=== PATIENT | male | born 1935 | race Caucasian/White ===

== ENCOUNTER 2018-09-02 10:53 | Emergency (ER) | payer OTHER ==
[2018-09-02 10:54] VITALS: PULSE 129
--- NOTE | 2018-09-02 11:49 | ED PDOC ---
HPI: Psych/Substance Abuse Time Seen by Provider: 09/02/18 11:21 Chief Complaint (Nursing): Psychiatric Evaluation Chief Complaint (Provider): Dementia ED Caveat: Dementia, Uncooperative, Language Barrier History/Exam Limitations: language barrier Onset/Duration Of Symptoms: Persistent Current Symptoms Are (Timing): Constant Modifying Factor(s): None (Pt presents to the ED ) Severity: Mild Associated Symptoms: Agitation Involuntary Hold By: None (Pt presents to the ED from [facility] of a demented individual who had been becoming agitated with staff and spitting and kicking at them; no complaints of any acture medical conditions) Past Medical History Reviewed: Historical Data, Nursing Documentation, Vital Signs Vital Signs: Last Vital Signs Temp 97.6 F 09/02/18 10:57 Pulse 81 09/02/18 10:57 Resp 17 09/02/18 10:57 BP 131/95 H 09/02/18 10:57 Pulse Ox 96 09/02/18 10:57 - Medical History PMH: Dementia Denies: Deep Vein Thrombosis - Surgical History Surgical History: Cholecystectomy Denies: Pacemaker - Family History Family History: States: Unknown Family Hx - Immunization History Hx Tetanus Toxoid Vaccination: No Hx Influenza Vaccination: No Hx Pneumococcal Vaccination: No - Home Medications Home Medications: Ambulatory Orders Medication Instructions Recorded Finasteride [Proscar] 5 mg PO DAILY 07/11/18 Aspirin [Aspirin Chewable] 81 mg PO DAILY chew 07/21/18 Donepezil [Aricept] 5 mg PO HS tab 07/21/18 Rosuvastatin Calcium [Crestor] 10 mg PO HS tab 07/21/18 Nicotine 21 mg/24 hr [Nicoderm Cq] 1 patch TD DAILY patch 07/25/18 Albuterol/Ipratropium [Duoneb 3 3 ml INH RQ6 PRN neb 08/01/18 mg/0.5 mg (3 ml) UD] Apixaban [Eliquis] 2.5 mg PO BID tab 08/01/18 Verapamil ER [Calan SR Tab] [address] 08/01/18 Acetaminophen [Tylenol 325mg tab] 650 mg PO Q4 PRN 09/02/18 Acetaminophen [Tylenol 325mg tab] 650 mg PO Q4 PRN 09/02/18 Brimonidine 0.2% [Alphagan 0.2% 1 drop EACHEYE DAILY 09/02/18 Opht] Guaifenesin/Dextromethorphan 10 ml PO Q8 09/02/18 [Diabetic Tussin] LORazepam [Ativan] 1 mg PO Q12 PRN 09/02/18 Latanoprost 0.005% Opht [Xalatan 1 drop EACHEYE HS 09/02/18 Opht] Linezolid [Zyvox] 600 mg PO Q12 09/02/18 Saccharomyces Boulardi [Florastor] 250 mg PO BID 09/02/18 Vitamin B Complex/Vitamin C 1 tab PO DAILY 09/02/18 [Berocca] - Allergies Allergies/Adverse Reactions: Allergies Allergy/AdvReac Type Severity Reaction Status Date / Time No Known Allergies Allergy Verified 07/11/18 18:23 Review of Systems ROS Statement: Except As Marked, All Systems Reviewed And Found Negative Neurological: Positive for: Altered Mental Status Physical Exam - Reviewed Nursing Documentation Reviewed: Yes Vital Signs Reviewed: Yes - Physical Exam Appears: Positive for: Well, Non-toxic, No Acute Distress. Negative for: Uncomfortable Head Exam: Positive for: ATRAUMATIC, NORMAL INSPECTION Skin: Positive for: Normal Color, Warm, Dry. Negative for: Diaphoresis, Pallor, Rash Eye Exam: Positive for: Normal appearance, EOMI, PERRL. Negative for: Nystagmus, Periorbital swelling, Periorbital tenderness ENT: Positive for: Normal ENT Inspection Neck: Positive for: Normal, Painless ROM, Supple. Negative for: Decreased ROM Cardiovascular/Chest: Positive for: Regular Rate, Rhythm Respiratory: Positive for: Normal Breath Sounds Pulses-Carotid (L): 2+ Pulses-Carotid (R): 2+ Pulses-Radial (L): 2+ Pulses-Radial (R): 2+ Neurologic/Psych: Positive for: Alert, Oriented - Laboratory Results Result Diagrams: 09/02/18 12:40 09/02/18 12:40 - ECG O2 Sat by Pulse Oximetry: 96 Medical Decision Making Medical Decision Making: I: Dementia P: Crisis Evaluation and medical clearance The patient is medically cleared to return to the nursing facility The patient is psychologically cleared to return to the nursing facility Disposition - Clinical Impression Clinical Impression: Dementia - Patient ED Disposition Is Patient to be Admitted: No Doctor Will See Patient In The: Office Counseled Patient/Family Regarding: Diagnosis, Need For Followup - Disposition Referrals: Abran King MD [Staff Provider] - Disposition: Other Institution ([facility]) Disposition Time: 15:27 Condition: STABLE Instructions: Dementia (Including Alzheimer Disease), Dementia (DC) Forms: [employer] ([place])
[2018-09-02 12:48] LABS: BASO % 0.2 % (0.0-2.0); EOS # 0.1 K/uL (0.0-0.7); EOS % 1.1 % (0.0-4.0); HEMOGLOBIN 10.6 g/dL (12.0-18.0); LYMPH % 21.7 % (20.0-40.0); MEAN CELL VOLUME 82.9 fl (80.0-94.0); MEAN CORPUSCULAR HEMOGLOBIN 26.4 pg (27.0-31.0); MEAN CORPUSCULAR HGB CONC 31.8 g/dL (33.0-37.0); MEAN PLATELET VOLUME 6.4 fl (7.2-11.7); MONO # 0.5 K/uL (0.0-0.8); MONO % 10.2 % (0.0-10.0); NEUT # 3.1 K/uL (1.8-7.0); NEUT % 66.8 % (50.0-75.0); NRBC % 0.1 % (0.0-0.0); RBC 4.02 Mil/uL (4.40-5.90); RED CELL DISTRIBUTION WIDTH 17.2 % (11.5-14.5); WHITE BLOOD COUNT 4.6 K/uL (4.8-10.8)
[2018-09-02 12:58] LABS: ALB/GLOB RATIO 0.8 (1.0-2.1); ALT/SGPT 29 U/L (21-72); AST/SGOT 47 U/L (17-59); BLOOD UREA NITROGEN 20 mg/dl (9-20); CALCIUM 8.9 mg/dL (8.4-10.2); GFR NON-AFRICAN AMERICAN > 60
[2018-09-02 14:54] LABS: URINE BILIRUBIN NEGATIVE (NEGATIVE); URINE BLOOD LARGE (NEGATIVE); URINE CLARITY SLIGHTY-CLOUDY (Clear); URINE COLOR YELLOW (YELLOW); URINE GLUCOSE (UA) NEG (NEGATIVE); URINE LEUKOCYTE ESTERASE NEG Leu/uL (Negative); URINE PROTEIN NEGATIVE (NEGATIVE); URINE UROBILINOGEN 0.2-1.0 mg/dL (0.2-1.0)
--- NOTE | 2018-09-02 15:21 | RAD ---
Date of service: 09/02/2018 HISTORY: r/o pna COMPARISON: No prior. TECHNIQUE: Chest PA and lateral FINDINGS: LUNGS: No active pulmonary disease. PLEURA: No significant pleural effusion identified. No pneumothorax apparent. CARDIOVASCULAR: No radiographic findings to suggest acute or significant cardiovascular disease. Atherosclerotic calcifications identified primarily aortic arch. No pulmonary vascular congestion. OSSEOUS STRUCTURES: No significant abnormalities. VISUALIZED UPPER ABDOMEN: Normal. OTHER FINDINGS: None. IMPRESSION: No active disease.
[2018-09-02 17:55] VITALS: BP 106/65; PULSE 64; RESP 18; TEMP 97; O2SAT 97
--- NOTE | 2018-09-02 19:32 | CARD ---
APPROVED REPORT Date of service: 09/02/2018 EKG Measurement Heart [id number] <Conclusion> Normal sinus rhythm Normal ECG
== END 2018-09-02 18:00 | disposition short-term general hospital (02) ==
LOC: H.ER 10:53
DX: F03.90 Unspecified dementia, unspecified severity, without behavioral disturbance, psychotic disturbance, mood disturbance, and anxiety (principal); Z79.01 Long term (current) use of anticoagulants
CPT/HCPCS: 71046; 80053; 81003; 82948; 84484; 85025; 87040; 87070; 87086; 87430; 87804; 93005; 96372; 96374; 99283; J1630; J2060